=== PATIENT | female | born 1955 | race Caucasian/White ===

== ENCOUNTER 2019-12-24 16:28 | Outpatient (CLI) | payer OTHER, BC, SELFPAY ==
--- NOTE | ~2019-12-24 | MM_ITS ---
EXAMINATION: MM screening yadira BI w yuriy HISTORY: Screening mammogram, family history of breast cancer in her sister. TECHNIQUE: Craniocaudal and mediolateral oblique 3-D tomosynthesis images were obtained and synthetic 2-D images were generated. CAD analysis was submitted and interpreted. COMPARISON: 10/05/2018, 09/27/2017, 08/16/2016 BREAST PARENCHYMAL COMPOSITION: There are scattered areas of fibroglandular density. FINDINGS: There is no evidence of suspicious mass, calcification, or architectural distortion to sugg est malignancy in either breast. There has been no suspicious interval change. IMPRESSION: 1. No mammographic evidence of malignancy. 2. Recommend routine screening mammography in one year. BI-RADS Category 1: Negative Reviewed, dictated and finalized at location A.
== END 2019-12-24 16:29 | disposition home or self-care (01) ==
LOC: ANHIMG 16:31
PROVIDERS: PCP Family Medicine; Visit Provider Nurse Practitioner Family
DX: Z12.31 Encounter for screening mammogram for malignant neoplasm of breast (principal)
CPT/HCPCS: 77063; 77067

== ENCOUNTER → 2020-08-02 11:16 | Outpatient (CLI) | payer OTHER, BC, SELFPAY ==
--- NOTE | ~2020-08-02 | DEXA_ITS ---
Bone Density Report Name: Juana Calloway Age: 64 Sex: Female Ethnicity: White Date of : 1955 Indication: postmenopausal; screening for osteoporosis; Referring Provider: Kinga Gonzalez Study: Bone densitometry was performed. Exam Date: August 02, 2020 Accession number: [id number] Bone Density: Region BMD T-score Z-score Classification AP Spine (L1-L4) 1.017 -0.3 1.3 Normal Femoral Neck (Left) 0.952 0.9 2.3 Normal Total Hip (Left) 1.030 0.7 1.8 Normal Femoral Neck (Right) 0.987 1.2 2.6 Normal Total Hip (Right) 1.017 0.6 1.7 Normal Total Hip Mean 1.024 0.7 1.8 Normal World Health Organization criteria for BMD impression classify patients as: Normal (T-score at or above -1.0), Osteopenia (T-score between -1.0 and -2.5), or Osteoporosis (T-score at or below -2.5). 10-year Fracture Risk: FRAX not reported because: All T-scores for Spine Total, Hip Total, Femoral Neck at or above -1.0 Previous Exams: Region Exam Age BMD T-score BMD Change BMD Change Date g/cm2 vs Baseline vs Previous AP Spine(L1-L4) 08/02/2020 64 1.017 -0.3 -0.102* -0.035* 05/28/2017 61 1.051 0.0 -0.068* -0.068* 04/26/2011 55 1.119 0.7 Total Hip(Left) 08/02/2020 64 1.030 0.7 -0.006 -0.040* 05/28/2017 61 1.070 1.1 0.034* 0.034* 04/26/2011 55 1.036 0.8 Total Hip(Right) 08/02/2020 64 1.017 0.6 0.012 -0.026 05/28/2017 61 1.043 0.8 0.037* 0.037* 04/26/2011 55 1.005 0.5 *Denotes significance at 95% confidence level, LSC for AP Spine = 0.022 g/cm2, LSC for Total Hip = 0.027 g/cm2 Clinical Information Provided by Patient: Smokes Has used the following medications: Vitamin D Patient maximum height was 67 Menopause Age: 52 No regular weight bearing exercise Does not regularly consume dairy products Drinks caffeinated beverages Onset of menses at age 14 Number of children 2 Impression: The patient has normal bone mass. The patient has risk factors, including: smoking. The BMD for the AP Spine(L1-L4) decreased, changing by -0.035 since the last DXA exam. The BMD for the Total Hip(Left) decreased, changing by -0.040 since the last DXA exam. Discussion: BONE DENSITY IS ABOVE THE MINIMUM DESIRABLE LEVEL AT ALL SKELETAL SITES TESTED. This patient?s bone mineral density is above the minimum desirable level (T-score -1.0 or better) at all
== END ==
PROVIDERS: PCP Family Medicine; Visit Provider Nurse Practitioner
DX: Z78.0 Asymptomatic menopausal state (principal)
CPT/HCPCS: 77080

== ENCOUNTER 2020-12-25 08:33 | Outpatient (CLI) | payer OTHER, BC, SELFPAY ==
--- NOTE | ~2020-12-25 | MM_ITS ---
EXAMINATION: MM screening yadira BI w yuriy HISTORY: Screening mammogram, family history of breast cancer in her sister. TECHNIQUE: Craniocaudal and mediolateral oblique 3-D tomosynthesis images were obtained and synthetic 2-D images were generated. CAD analysis was submitted and interpreted. COMPARISON: 12/24/2019, 10/05/2018, 09/27/2017 BREAST PARENCHYMAL COMPOSITION: There are scattered areas of fibroglandular density. FINDINGS: There is no evidence of suspicious mass, calcification, or architectural distortion to sugg est malignancy in either breast. There has been no suspicious interval change. IMPRESSION: 1. No mammographic evidence of malignancy. 2. Recommend routine screening mammography in one year. BI-RADS Category 1: Negative Reviewed, dictated and finalized at location A.
== END 2020-12-25 08:34 | disposition home or self-care (01) ==
LOC: ANHIMG 08:35
PROVIDERS: PCP Family Medicine; Visit Provider Nurse Practitioner
DX: Z12.31 Encounter for screening mammogram for malignant neoplasm of breast (principal)
CPT/HCPCS: 77063; 77067

== ENCOUNTER 2021-02-28 08:59 | Emergency (ER) | payer OTHER, BC, SELFPAY ==
[2021-02-28 09:13] VITALS: BP 118/69; PULSE 73; RESP 16; TEMP 36.3; O2SAT 100
--- NOTE | 2021-02-28 09:41 | ED.LOWEXIN ---
HPI - Extremity Injury (Lower) General Chief Complaint: Extremity Injury, Lower Stated Complaint: Left leg Pain Time Seen by Provider: 02/28/21 09:41 Source: patient, RN notes reviewed and old records reviewed Mode of arrival: ambulatory Limitations: no limitations History of Present Illness HPI Narrative: 65-year-old female presents to the [facility] with complaints of left leg pain. Has swelling to the left upper thigh along with there is varicose veins. Mild swelling noted. Patient is worried about a DVT. Walks with a normal gait. Had an appointment with her primary care provider this afternoon but came here first. Related Data Home Medications Medication Instructions Recorded Confirmed cholecalciferol (vitamin D3) 25 25 mcg PO DAILY 05/21/19 02/28/21 mcg (1,000 unit) capsule chromium picolinate 1,000 mcg 1,000 mcg PO DAILY 05/21/19 02/28/21 tablet vitamin E (dl, acetate) 180 mg 400 unit PO DAILY 05/21/19 02/28/21 (400 unit) capsule Allergies Allergy/AdvReac Type Severity Reaction Status Date / Time codeine Allergy Unknown Vomiting Verified 02/28/21 14:32 oxycodone Allergy Unknown Vomiting Verified 02/28/21 14:32 Review of Systems Constitutional: Constitutional: Reports no additional constitutional complaints Eyes: Eyes: Reports no additional eye complaints ENT: Reports system reviewed and no additional complaints, except as documented Cardiovascular: Cardiovascular: Reports no additional cardiovascular complaints Respiratory: Respiratory: Reports no additional respiratory complaints Integumentary/Breasts: Skin/Breast: Reports system reviewed and no additional complaints, except as docu Comments: Redness swelling left upper thigh Neurologic: Reports system reviewed and no additional complaints, except as documented Psychiatric: Psychiatric: Reports no additional psychiatric complaints Allergic/Immunologic: Allergic/Immunologic: Reports no additional allergic/immunologic complaints [facility] Past Medical History Medical History Atopic dermatitis GERD (gastroesophageal reflux disease) HLD (hyperlipidemia) HTN (hypertension) Plantar fasciitis (~11/2019) Vitamin D deficiency Surgical History Surgical History History of back surgery 1990, 1992 History of knee replacement 2007, 2012 Family History Family History Sibling Hypertension Family history of elevated blood lipids Family history of diabetes mellitus in first degree relative Family history of malignant neoplasm of breast in first degree relative Mother Family history of diabetes mellitus in first degree relative Family history of coronary artery disease Diabetes mellitus Family history of cardiovascular disease Father Family history of malignant neoplasm of gastrointestinal tract Malignant neoplasm of prostate Other Cerebrovascular accident Family history of malignant neoplasm of breast Social History Social History Smoking packs per day: 0.5 Smoking cigarettes per day: 10.0 Years smoked: 40 Smoking pack-years: 20.00 Smoking status: Current some day smoker Tobacco type: cigarettes (0.5 pack ) Alcohol intake: current Substance use: never Gender identity (if verbalized by the patient): Female Comments At the time of my signature, I reviewed and agree with the nursing past medical, surgical, social, and family history. There is no relevant family history pertinent to the patient complaint. Exam Const: General: healthy appearing, no acute distress and alert Nutritional Appearance: well nourished and obese Orientation/consciousness: patient oriented x3 Limitations: no limitations HENMT: Head: normal to inspection Eyes: Pupils: Equal, round and reactive pupils present Neck: Neck: normal visual inspec
== END 2021-02-28 10:00 | disposition home or self-care (01) ==
PROVIDERS: Emergency Provider Nurse Practitioner; PCP Family Medicine
DX: I80.9 Phlebitis and thrombophlebitis of unspecified site (principal); E78.5 Hyperlipidemia, unspecified; I10 Essential (primary) hypertension; F17.210 Nicotine dependence, cigarettes, uncomplicated
CPT/HCPCS: 99213; G0463

== ENCOUNTER 2021-03-01 17:09 | Emergency (ER) | payer OTHER, BC, SELFPAY ==
--- NOTE | ~2021-03-01 | US_ITS ---
EXAMINATION: US venous doppler [facility] EXAM DATE: 03/01/2021 17:44 INDICATION: left leg pain, swelling swelling. TECHNIQUE: Multiple grayscale, color flow and Doppler images of the left lower extremity deep venous system were obtained and reviewed. There is no prior study for comparison. FINDINGS: The left common femoral, femoral and profunda veins demonstrate normal color flow, respirat ory variation, augmentation and compressibility. Compressibility, color flow confirmed within the le ft popliteal, posterior tibial, peroneal, and greater saphenous veins. Left mid thigh area of concern demonstrates a superficial thrombosed varicosity. IMPRESSION: 1. No left lower extremity deep venous thrombosis. 2. Left mid thigh superficial thrombophlebitis. Reviewed, dictated and finalized at location A. WEIGHER
[2021-03-01 17:12] VITALS: BP 149/87; PULSE 80; RESP 18; TEMP 36.8; O2SAT 100
--- NOTE | 2021-03-01 18:07 | ED.EXTPRO ---
HPI - Extremity Problem General Chief complaint: Extremity Problem,Nontraumatic Stated complaint: varicose vein swelling, Time Seen by Provider: 03/01/21 17:20 Source: patient Mode of arrival: ambulatory Limitations: no limitations History of Present Illness HPI Narrative: This is a 65-year-old female that presents to the emergency department for redness and swelling of the left upper leg. Reports she was seen by urgent care yesterday and diagnosed with superficial phlebitis. She was started on cephalexin. Today the redness worsened which prompted her to be seen. Denies fever or numbness. Related Data Home Medications Medication Instructions Recorded Confirmed cholecalciferol (vitamin D3) 25 25 mcg PO DAILY 05/21/19 02/28/21 mcg (1,000 unit) capsule chromium picolinate 1,000 mcg 1,000 mcg PO DAILY 05/21/19 02/28/21 tablet vitamin E (dl, acetate) 180 mg 400 unit PO DAILY 05/21/19 02/28/21 (400 unit) capsule Allergies Allergy/AdvReac Type Severity Reaction Status Date / Time codeine Allergy Unknown Vomiting Verified 02/28/21 14:32 oxycodone Allergy Unknown Vomiting Verified 02/28/21 14:32 Review of Systems Review of Systems: CONSTITUTIONAL: Denies fever SKIN: Reports erythema NEUROLOGIC: Denies numbness All systems reviewed & are unremarkable except as noted in HPI and below PMFSH Past Medical History Medical History Atopic dermatitis GERD (gastroesophageal reflux disease) HLD (hyperlipidemia) HTN (hypertension) Plantar fasciitis (~11/2019) Vitamin D deficiency Surgical History Surgical History History of back surgery 1990, 1992 History of knee replacement 2007, 2012 Family History Family History Sibling Hypertension Family history of elevated blood lipids Family history of diabetes mellitus in first degree relative Family history of malignant neoplasm of breast in first degree relative Mother Family history of diabetes mellitus in first degree relative Family history of coronary artery disease Diabetes mellitus Family history of cardiovascular disease Father Family history of malignant neoplasm of gastrointestinal tract Malignant neoplasm of prostate Other Cerebrovascular accident Family history of malignant neoplasm of breast Social History Social History Smoking packs per day: 0.5 Smoking cigarettes per day: 10.0 Years smoked: 40 Smoking pack-years: 20.00 Smoking status: Current some day smoker Tobacco type: cigarettes (0.5 pack ) Alcohol intake: current Substance use: never Gender identity (if verbalized by the patient): Female Exam Narrative: GENERAL: Well-appearing, well-nourished, and in no acute distress. HEAD: Normocephalic, atraumatic. EYES: EOMI. CHEST: No respiratory distress. HEART: Regular rate EXTREMITIES: Normal range of motion. Palpable cord with surrounding redness to the left medial thigh, tender to palpation. Otherwise no edema of the lower extremities. Normal DP pulses SKIN: Warm, dry, no rash. NEURO: No focal deficits. Alert and oriented x3. PSYCH: Normal mood and affect Course Vital Signs Vital signs: Vital Signs Temperature 98.2 F 03/01/21 17:12 Pulse Rate 80 03/01/21 17:12 Respiratory Rate 18 03/01/21 17:12 Blood Pressure 149/87 H 03/01/21 17:12 Pulse Oximetry 100 03/01/21 17:12 Temperature 98.2 F 03/01/21 17:12 Pulse Rate 80 03/01/21 17:12 Respiratory Rate 18 03/01/21 17:12 Blood Pressure 149/87 H 03/01/21 17:12 Pulse Oximetry 100 03/01/21 17:12 MDM - Extremity (Nontraumatic) MDM Narrative Medical decision making narrative: Patient presents to the emergency department for left upper leg erythema and swelling. Left lower extremity venous Dopplers without evidence of DVT. Does show le
[2021-03-01 18:36] VITALS: BP 131/82; PULSE 83; RESP 16; TEMP 36.6; O2SAT 97
== END 2021-03-01 18:39 | disposition home or self-care (01) ==
PROVIDERS: Emergency Provider Family Medicine; PCP Family Medicine
DX: I80.02 Phlebitis and thrombophlebitis of superficial vessels of left lower extremity (principal); K21.9 Gastro-esophageal reflux disease without esophagitis; E78.5 Hyperlipidemia, unspecified; I10 Essential (primary) hypertension; E55.9 Vitamin D deficiency, unspecified; Z96.659 Presence of unspecified artificial knee joint; F17.210 Nicotine dependence, cigarettes, uncomplicated
CPT/HCPCS: 93971; 99284

== ENCOUNTER 2022-04-04 17:32 | Outpatient (CLI) | payer BC, SELFPAY ==
--- NOTE | ~2022-04-04 | MM_ITS ---
EXAMINATION: MM screening yadira BI w yuriy HISTORY: Screening mammogram TECHNIQUE: Craniocaudal and mediolateral oblique 3-D tomosynthesis images were obtained and synthetic 2-D images were generated. CAD analysis was submitted and interpreted. COMPARISON: 12/25/2020, 12/24/2019, 10/05/2018 bilateral screening mammogram examinations BREAST PARENCHYMAL COMPOSITION: There are scattered areas of fibroglandular density. FINDINGS: There is no evidence of suspicious mass, calcification, or architectural distortion to sugg est malignancy in either breast. There has been no suspicious interval change. IMPRESSION: 1. No mammographic evidence of malignancy. 2. Recommend routine screening mammography in one year. BI-RADS Category 1: Negative Reviewed, dictated and finalized at location A. CAL ASSISTANT SECRETARY
== END 2022-04-04 17:33 | disposition home or self-care (01) ==
PROVIDERS: PCP Family Medicine; Visit Provider Nurse Practitioner
DX: Z12.31 Encounter for screening mammogram for malignant neoplasm of breast (principal)
CPT/HCPCS: 77063; 77067

== ENCOUNTER 2022-08-17 08:49 | Outpatient (CLI) | payer BC, SELFPAY ==
[2022-08-18 07:35] LABS: Kit Draw Collected
== END 2022-08-17 08:50 | disposition home or self-care (01) ==
LOC: ANHGOSHLAB 08:51
PROVIDERS: PCP Family Medicine; Visit Provider Nurse Practitioner Family
DX: E55.9 Vitamin D deficiency, unspecified (principal); Z13.29 Encounter for screening for other suspected endocrine disorder
CPT/HCPCS: 36415

== ENCOUNTER 2023-07-24 09:45 | Outpatient (CLI) | payer BC, SELFPAY ==
--- NOTE | ~2023-07-24 | MM_ITS ---
EXAMINATION: MM screening yadira BI w yuriy HISTORY: Screening mammogram TECHNIQUE: Craniocaudal and mediolateral oblique 3-D tomosynthesis images were obtained and synthetic 2-D images were generated. CAD analysis was submitted and interpreted. COMPARISON: 04/04/2022, 12/25/2020 bilateral screening mammogram examinations BREAST PARENCHYMAL COMPOSITION: The breasts are almost entirely fatty. FINDINGS: There is no evidence of suspicious mass, calcification, or architectural distortion to sugg est malignancy in either breast. There has been no suspicious interval change. IMPRESSION: 1. No mammographic evidence of malignancy. 2. Recommend routine screening mammography in one year. BI-RADS Category 1: Negative Reviewed, dictated and finalized at location A.
== END 2023-07-24 09:46 | disposition home or self-care (01) ==
PROVIDERS: PCP Family Medicine; Visit Provider Family Medicine
DX: Z12.31 Encounter for screening mammogram for malignant neoplasm of breast (principal)
CPT/HCPCS: 77063; 77067

== ENCOUNTER 2024-07-25 09:14 | Outpatient (CLI) | payer MEDICARE, SELFPAY ==
--- NOTE | ~2024-07-25 | MM_ITS ---
EXAMINATION: MM screening yadira BI w yuriy HISTORY: Screening TECHNIQUE: Craniocaudal and mediolateral oblique 3-D tomosynthesis images were obtained and synthetic 2-D images were generated. CAD analysis was submitted and interpreted. COMPARISON: Comparison to multiple prior studies sequentially, with oldest reviewed study dated 07/2017. BREAST PARENCHYMAL COMPOSITION: Not dense: There are scattered areas of fibroglandular density. FINDINGS: There is no evidence of suspicious mass, calcification, or architectural distortion to sugg est malignancy in either breast. There has been no suspicious interval change. IMPRESSION: 1. No mammographic evidence of malignancy. 2. Recommend routine screening mammography in one year. BI-RADS Category 1: Negative Reviewed, dictated and finalized at location A.
--- OUTSIDE RECORDS SUMMARY | 2024-07-26 11:27 | XMS_ITS | Referral Summary ---
Author Organization [facility] Address [facility] [place] [address] Care Team Providers Care Filling Machine Tender Name Role Phone Jericho Johnson MD Primary Care Provider Allergies Active Allergy Reactions Criticality Noted Date Comments Codeine Other (See comments) Low 02/24/2023 Neglected to ask; ask next time. 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
--- OUTSIDE RECORDS SUMMARY | 2024-07-26 11:27 | XMS_ITS | Continuity of Care Document ---
Author Organization [facility] Address [address] [facility] [address] [place] [address] Phone Care Team Providers Care Assistant Accounting Manager Name Role Phone Zakiya Recio Unavailable Unavailable Advance Directives Directive Yes / No Effective Date File Name No Information Encounters Encounter Description Practice Location Reason(s) For Visit Diagnoses Date Provider Providers Copied on Encounter [facility], [address], [place], [place], [id number], [place] tel:[phone] [facility] Edwin No Information 0-200 6 Almita Sigala. [address] , [address], [place], [address], [place]. tel:[phone] Family History Family Member Type Diagnosis Age At Onset No Information Payers Payer name Insurance type Covered democrat ID Authoriza tichris(s) [facility] Commercial CI [id number] Social History Type Description Quantity Date Captured Comments Sex Female Smoking Status No Information Chief Complaint And Reason For Visit No Information Reason For Referral Reason For Referral No Information History Of Present Illness Encounter Date Complaint History Of Prese nt Illness No Information Functional Status Date Functional Assessmen t No Information Instructions Date Instruction Additional Infor mation No Information Assessments Type Assessment Date No Information Patient Care Teams Name Effective Dates (start - stop) Status Members No Information
--- OUTSIDE RECORDS SUMMARY | 2024-07-26 11:27 | XMS_ITS | Clinical Summary ---
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 Gender Identity Not on file Sexual Orientation Not on file Obstetrics History Plan of Treatment Health Maintenance Due Date Last Done Comments Breast Cancer Screening-Mammogram 1955 Colon Cancer Screening-Colonoscopy 1955 Depression Screening 1955 Fall Risk Assessment 1955 Hepatitis C Screening 1955 Osteoporosis Screening-Bone Density Scan 1955 Hepatitis B Screening 10/22/1975 Pneumococcal vaccine 65+ (1 of 1 - PCV) 10/22/2007 Zoster Vaccine (1 of 2) 10/22/2007 Well Visit 65+ 2022 Covid-19 Vaccine (2023-2 5 season) 2023 12/18/2022, 12/02/2021, 07/15/2021, Additional history exists Influenza Vaccine (Season Ended) 2024 12/18/2022, 12/02/2021, 12/21/2020, Additional history exists DTaP/Tdap/Td Vaccine (3 - Td or Tdap) 11/30/2030 11/30/2020, 12/09/2019 Insurance [employer] OOS Nas[employer] OOS Care Teams Bow Making Machine Operator Relationship Specialty Start Date End Date Jericho Johnson MD [address] [place] [address] [address] [place] [id number] PCP - General Family Practice 01/29/23
--- OUTSIDE RECORDS SUMMARY | 2024-07-26 11:27 | XMS_ITS | Continuity of Care Document ---
Author Organization [facility] Address [address] [place] [address] Phone Care Team Providers Care Infection Control Manager Name Role Phone Unavailable Unavailable Unavailable Procedures Procedure Date Knee arthscpy mnsctmy medial or lat Postop followup visit Postop followup visit Drain/inject major jointor bursa 2006 Depo Medrol Methylprednisolone 40 MG inj Postop followup visit Postop followup visit Knee arthscpy mnsctmy medial or lat Postop followup visit Knee arthscpy mnsctmy medial or lat Office/outpatient visit,est, mod 2005 MRI lwr extrm joint, w/o contrast MRI lwr extrm joint, w/o contrast Office/outpatient visit,est, mod 2005 Drain/inject major jointor bursa 2005 Drain/inject major jointor bursa 2005 Depo Medrol Methylprednisolone 40 MG inj X-ray exam of knee, 1 or2 views 006 X-ray exam of knee, 1 or2 views 006 X-ray exam of both knees, standing Office/outpatient visit,est, mod 2005 Advance Directives Directive Yes / No Effective Date File Name No Information Encounters Encounter Description Practice Location Reason(s) For Visit Diagnoses Date Provider Providers Copied on Encounter [facility], [address] [place], [place], [id number], [place] tel:[phone] [facility] No Information 7 No Information Referring Provider: Ryanne Magaña, [address], [place], [address]. tel:[phone] [facility], [address] [facility] [address], [place], [place], [id number], [place] tel:[phone] [facility] No Information 7 No Information Referring Provider: Ryanne Magaña, [address], [place], [address]. tel:[phone] [facility], [address] [facility] [address], [place], [place], [id number], [place] tel:[phone] [facility] No Information 0 7 No Information Referring Provider: Ryanne Magaña, [address], [place], [address]. tel:[phone] [facility], [address] [address], [place], [place], [id number], [place] tel:[phone] [facility] No Information 6 No Information Referring Provider: Ryanne Magaña, [address], [place], [address]. tel:[phone] [facility], [address] [facility] [address], [place], [place], [id number], [place] tel:[phone] [facility] No Information 6 No Information Referring Provider: Ryanne Magaña, [address], [place], [address]. tel:[phone] [facility], [address], [place], [place], [id number], [place] tel:[phone] [facility] No Information 6 No Information Referring Provider: [address], [place], [address]. tel:[phone] [facility], [address] [facility] [address], [place], [place], [id number], [place] tel:[phone] [facility] No Information Sep-2 5-200 6 No Information Referring Provider: Ryanne Magaña, [address], [place], [address]. tel:[phone] [facility], [address] [facility] [address], [place], [place], [id number], [place] tel:[phone] [place] [address] No Information Sep-2 5200 6 No Information Referring Provider: Ryanne Magaña, [address], [place], [address]. tel:[phone] [place]pat ient visit,est, [facility], [address] [address], [place], [place], [id number], [place] tel:[phone] [facility] No Information Sep-0 7-200 6 No Information Referring Provider: Ryanne Magaña, [address], [place], [address]. tel:[phone] [facility], [address] [facility] [address], [place], [place], [id number], [place] tel:[phone] [facility] No Information Aug-3 0-200 6 No Information Office/outpat ient visit,est, [facility], [address] [facility] [address], [place], [place], [id number], [place] tel:[phone] [facility] No Information Aug-2 5200 6 No Information Referring Provider: Ryanne Magaña, [address], [place], [address]. tel:[phone] Office/outpat ient visit,est, mod [facility], [address] [facility] [address], [place], [place], [id number], [place] tel:[phone] [facility] No Information 3-200 6 No Information Referring Provider: Ryanne Magaña, [address], [place], [address]. tel:[phone] Family History Family Member Type Diagnosis Age At Onset No Information Payers Payer name Insurance type Covered libertarian ID Authoriza tichris(s) [facility] [id number] [facility] [id number] Social History Type Description Quantity Date Captured [...]
--- OUTSIDE RECORDS SUMMARY | 2024-07-26 11:28 | XMS_ITS | CONTINUITY OF CARE DOCUMENT ---
Author Name sabrina bennett Address Unknown Organization [facility] Address [address] [place] [address] Phone [phone] Care Team Providers Care Assistant Vice President Name Role Phone Vlad MURRAY, Sanchez Unavailable [phone] ANUPAM MURRAY, MAURA Unavailable INSURANCE PROVIDERS Payer name Policy type / Coverage type Carmel red constitution party ID [facility] [id number] [facility] [id number] Other [id number]
--- OUTSIDE RECORDS SUMMARY | 2024-07-26 11:28 | XMS_ITS | Continuity of Care Document ---
Author Organization [facility] Address [address] [place] [address] Social History Not on File Plan of Treatment Not on file
== END 2024-07-25 09:15 | disposition home or self-care (01) ==
LOC: ANHIMG 09:17
PROVIDERS: PCP Family Medicine; Visit Provider Family Medicine
DX: Z12.31 Encounter for screening mammogram for malignant neoplasm of breast (principal)
CPT/HCPCS: 77063; 77067

== ENCOUNTER 2024-07-30 07:47 | Outpatient (CLI) | payer MEDICARE, SELFPAY ==
--- OUTSIDE RECORDS SUMMARY | 2024-07-30 07:51 | XMS_ITS | CONTINUITY OF CARE DOCUMENT ---
Author Name sabrina bennett Address Unknown Organization [facility] Address [address] [place] [address] Phone [phone] Care Team Providers Care District Manager Postal Service Name Role Phone Vlad MURRAY, Sanchez Unavailable ANUPAM MURRAY, MAURA Unavailable INSURANCE PROVIDERS Payer name Policy type / Coverage type [place] red green party ID [facility] [id number] [facility] [id number] Other [id number]
--- OUTSIDE RECORDS SUMMARY | 2024-07-30 07:51 | XMS_ITS | Continuity of Care Document ---
Author Organization [facility] Address [address] [place] [address] Phone Care Team Providers Care Thermodynamics Engineer Name Role Phone Unavailable Unavailable Unavailable Procedures [...] Provider Providers Copied on Encounter [facility], [address], [place], [place], [id number], [place] tel:[phone] [facility] No Information 7 No Information Referring Provider: Ryanne Magaña, [address], [place], [address]. tel:[phone] [facility], [address] [facility] [address], [place], [place], [id number], [place] tel:[phone] [facility] No Information 7 No Information Referring Provider: Ryanne Magaña, [address], [place], [address]. tel:[phone] [facility], [address] [facility] [address], [place], [place], [id number], [place] tel:[phone] [facility] No Information 0 7 No Information Referring Provider: Ryanne Magaña, [address], [place], [address]. tel:[phone] [facility], [address] [address], [place], [place], [id number], [place] tel:[phone] [facility] No Information 6 No Information Referring Provider: Ryanne Magaña, [address], [place], [address]. tel:[phone] [facility], [address] [facility] [address], [place], [place], [id number], [place] tel:[phone] [facility] No Information 6 No Information Referring Provider: Ryanne Magaña, [address], [place], [address]. tel:[phone] [facility], [address], [place], [place], [id number], [place] tel:[phone] [facility] No Information 6 No Information Referring Provider: An[address], [place], [address]. tel:[phone] [facility], [address] [facility] [address], [place], [place], [id number], [place] tel:[phone] [facility] No Information Sep-2 5-200 6 No Information Referring Provider: Ryanne Magaña, [address], [place], [address]. tel:[phone] [facility], [address] [facility] [address], [place], [place], [id number], [place] tel:[phone] [place] [address] No Information Sep-2 5200 6 No Information Referring Provider: Ryanne Magaña, [address], [place], [address]. tel:[phone] Office/outpat ient visit,est, [facility], [address] [address], [place], [place], [id number], [place] tel:[phone] [facility] No Information Sep-0 7-200 6 No Information Referring Provider: Ryanne Magaña, [address], [place], [address]. tel:[phone] [facility], [address] [facility] [address], [place], [place], [address], [place] tel:[phone] [facility] No Information Aug-3 0-200 6 No Information Office/outpat ient visit,est, [facility], [address] [facility] [address], [place], [place], [address], [place] tel:[phone] [facility] No Information Aug-2 5200 6 No Information Referring Provider: Ryanne Magaña, [address], [place], [address]. tel:[phone] Office/outpat ient visit,est, mod [facility], [address] [facility] [address], [place], [place], [id number], [place] tel:[phone] [facility] No Information 3-200 6 No Information Referring Provider: Ryanne Magaña, [address], [place], [address]. tel:[phone] Family History Family Member Type Diagnosis Age At Onset No Information Payers Payer name Insurance type Covered alliance party ID Authoriza tichris(s) [facility] [id number] [facility] [id number] Social History Type Description Quantity Date [...]
--- OUTSIDE RECORDS SUMMARY | 2024-07-30 07:51 | XMS_ITS | Continuity of Care Document ---
Author Organization [facility] Address [address] [facility] [address] [place] [address] Phone Care Team Providers Care Sales Driver Name Role Phone Zakiya Recio Unavailable Unavailable Advance Directives Directive Yes / No Effective Date File Name No Information Encounters Encounter Description Practice Location Reason(s) For Visit Diagnoses Date Provider Providers Copied on Encounter [facility], [address], [place], [place], [address], [place] tel:[phone] [facility] No Information 0-200 6 Almita Sigala. [address], [place], [address], [place]. tel:[phone] Family History Family Member Type Diagnosis Age At Onset No Information Payers Payer name Insurance type Covered constitution party ID Authoriza tichris(s) [facility] Commercial [employer] [id number] Social History Type Description Quantity Date Captured [...]
--- OUTSIDE RECORDS SUMMARY | 2024-07-30 07:51 | XMS_ITS | Clinical Summary ---
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
--- OUTSIDE RECORDS SUMMARY | 2024-07-30 07:51 | XMS_ITS | Referral Summary ---
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
== END 2024-07-30 07:48 | disposition home or self-care (01) ==
LOC: ANHAUDIO 07:48
PROVIDERS: PCP Family Medicine; Visit Provider Otolaryngology
DX: H93.13 Tinnitus, bilateral (principal); H90.3 Sensorineural hearing loss, bilateral
CPT/HCPCS: 92557; 92567

== ENCOUNTER 2025-03-05 14:50 | Outpatient (CLI) | payer MEDICARE, SELFPAY ==
--- NOTE | ~2025-03-05 | DEXA_ITS ---
Bone Density Report Name: NABOR GRIGSBY Age: 69 Sex: Female Ethnicity: White Date of : 1955 Indication: postmenopausal; screening for osteoporosis; height loss; Referring Provider: LILIA CRISTOBAL Study: Bone densitometry was performed. Exam Date: March 05, 2025 Accession number: [id number] Bone Density: Region BMD T-score Z-score Classification Femoral Neck (Left) 0.942 0.8 2.5 Normal Total Hip (Left) 1.039 0.8 2.1 Normal World Health Organization criteria for BMD impression classify patients as: Normal (T-score at or above -1.0), Osteopenia (T-score between -1.0 and -2.5), or Osteoporosis (T-score at or below -2.5). 10-year Fracture Risk: FRAX not reported because: All T-scores for Spine Total, Hip Total, Femoral Neck at or above -1.0 Clinical Information Provided by Patient: Smokes Has used the following medications: Vitamin D, Calcium Patient maximum height was 67.55 Menopause Age: 57 No regular weight bearing exercise Drinks caffeinated beverages Onset of menses at age 14 Number of children 2 Impression: The patient has normal bone mass. The patient has risk factors, including: smoking. Discussion: LOW RISK OF FRACTURE; BONE DENSITY IS WELL ABOVE THE MINIMUM DESIRABLE LEVEL AND ABOVE AVERAGE FOR AGE AND SEX AT ALL SKELETAL SITES TESTED. This person's bone density is above expected limits for age and sex. This is rarely clinically significant, but should be pursued if there are significant musculoskeletal complaints. The patient should follow a healthful lifestyle (good nutrition with adequate calcium and vitamin D, and appropriate weight-bearing exercise). Follow-Up: Consider repeating this study in 5 years or sooner if there is some new clinical indication. Reported by: YOLANDA on 03/05/2025 3:30:00 PM. Reviewed, dictated and finalized at location A.
== END 2025-03-05 14:51 | disposition home or self-care (01) ==
LOC: ANHFOHIMG 14:51
PROVIDERS: PCP Nurse Practitioner Family; Visit Provider Nurse Practitioner Family
DX: Z78.0 Asymptomatic menopausal state (principal)
CPT/HCPCS: 77080